=== PATIENT | female | born 1975 | race Caucasian/White ===

== ENCOUNTER → 2016-09-07 | Outpatient (CLI) | payer OTHER ==
--- NOTE | 2016-09-11 13:17 | RADIOLOGY REPORT PS360 ---
DIG MAMM-SCREEN MAGALYS W/CAD DIG MAMM-SCREEN MAGALYS W/CAD CAD Screening ORDERING PHYSICIAN : Jose Cheng MD PATIENT AGE: 40 years GENDER: Female COMPARISON: Previous mammograms: December 2014 initial baseline mammogram INDICATION: Routine screening. 40-year-old with . No new complaints. IUD Mur[place] & noncontributory family history. 3. TECHNIQUE: Standard CC and MLO images were obtained. R2 CAD reviewed. FINDINGS Dense breast bilaterally. Mammography is decreased sensitivity in breast of this character and ultrasound can be a useful augment mammography however I see no focal areas which would require such on today's study. I would recommend a bilateral follow-up in one year to further verify this is a stable baseline pattern hopefully with routine protocol thereafter IMPRESSION ...... . Dense breasts decreased sensitivity mammography. However I see no focal areas of significant concern currently. Bilateral follow-up in one year is some breast examination recommended BI-RADS CATEGORY: 2_Benign RECOMMENDED FOLLOWUP: 12M 12 MONTH FOLLOW-UP (A letter has been sent to the patient regarding results of the study.) :
== END ==
LOC: RAD 08:53
DX: Z12.31 Encounter for screening mammogram for malignant neoplasm of breast (principal)
CPT/HCPCS: G0202